=== PATIENT | female | born 1995 | race Caucasian/White ===

== ENCOUNTER 2017-09-18 16:01 | Emergency (ER) | payer MEDICAID ==
[~2017-09-18] VITALS: Ht 154.9 cm; Wt 74.0 kg
[2017-09-18 16:07] VITALS: BP 114/79
== END 2017-09-18 18:17 | disposition home or self-care (01) ==
LOC: ER 18:07
DX: S43.402A Unspecified sprain of left shoulder joint, initial encounter (principal); F17.200 Nicotine dependence, unspecified, uncomplicated; X50.3XXA Overexertion from repetitive movements, initial encounter; Y93.89 Activity, other specified; Y92.89 Other specified places as the place of occurrence of the external cause; Y99.8 Other external cause status
CPT/HCPCS: 99281